=== PATIENT | female | born 1995 | race Caucasian/White ===

== ENCOUNTER 2021-08-01 07:44 | Observation (INO) ==
[2021-08-01] MEDS ORDERED: KETOROLAC TROMETHAMINE 15 MG/ML VIAL IV ONE (08:07)
[2021-08-01] MEDS ORDERED: ONDANSETRON INJ 2 MG/ML 2 ML VIAL IV STA ×2 (08:07→14:04)
[2021-08-01] MEDS ORDERED: SODIUM CHLORIDE 0.9% 1000ML 1,000 ML IV STA (08:07)
--- NOTE | 2021-08-01 08:12 | Emergency Department Note ---
Impression & Plan Abdominal pain, UTI (urinary tract infection), Leukocytosis, Vomiting ED Provider Note NAME: MEREDITH CORCORAN AGE: 26 SEX: F : 1995 ARRIVES VIA: Walk-In INFORMANT: Patient ED PROVIDER(S): Obie Kramer DO CHIEF COMPLAINT: Abdominal pain HPI: Patient is a 26-year-old female who presents to the ER for right lower quadrant abdominal pain associate with nausea. This is has been present for the past 24 hours. She describes it as sharp stabbing in nature. Denies any dysuria, urgency, or frequency. Last menstrual period was about a month ago. No cough or runny nose. Pain is worse with palpation or movement. No other exacerbating or remitting factors. No previous abdominal surgeries. She is sexually active with one partner. Denies any vaginal discharge. She has never had this pain before. She has not taken anything for the pain. With her nausea she does have some dry heaving. ROS: See above HPI for pertinent positives & negatives. A total of 10 systems reviewed and were otherwise negative. PAST MEDICAL HISTORY:See Below PAST SURGICAL HISTORY:See Below FAMILY HISTORY:See Below SOCIAL HISTORY:See Below HOME MEDICATIONS:See Below ALLERGIES:See Below VITALS:See Below PHYSICAL EXAMINATION: GENERAL: Sitting up in bed, alert, well appearing, well nourished, no distress, non-toxic EYE EXAM: normal conjunctiva. PERRL and EOM's grossly intact. OROPHARYNX: no exudate, no erythema, lips, buccal mucosa, and tongue normal and mucous membranes are moist NECK: supple, no nuchal rigidity, no adenopathy, non-tender LUNGS: Clear to auscultation. Normal chest wall mechanics HEART: no murmurs, S1 normal and S2 normal ABDOMEN: abdomen soft, tender to palpation right lower quadrant, normo-active bowel sounds, no masses, no rebound or guarding. UPPER EXTREMITIES: upper extremities are grossly normal. LOWER EXTREMITIES: No pitting edema. NEURO EXAM: Normal sensorium, cranial nerves II-XII grossly intact, normal speech, no gross weakness of arms, no gross weakness of legs. MEDICAL DECISION MAKING: Exact patient is a 26-year-old female who is a diabetic and presents the ER for severe lower abdominal pain with pressure when she has to urinate. IV was established blood work was obtained. Labs show leukocytosis of 15,000. No significant anemia. There is a significant left shift at nearly 12. BMP with mild hypokalemia. Glucose slightly elevated at 222. LFTs were elevated 175 170. T bili was normal. Lipase was normal. UA shows nitrates leuks whites and +4 bacteria and . No gap. Nothing to suggest an acidosis at this time. She does have vomiting. She was given IV antibiotics as well as Phenergan and Zofran. CT abdomen pelvis shows some inflammation of the bladder. Patient was updated at bedside and admitted to the hospitalist with mild transaminitis, UTI with nausea vomiting likely suggestive of Pylo. [facility] Nursing notes reviewed. Limited review of prior medical records performed Vital Signs: reviewed and remarkable for HTN, tachy Differential diagnosis: Differential diagnoses includes but is not limited to gastritis, peptic ulcer disease, GERD, gallbladder disease, pancreatitis, small bowel obstruction, acute coronary syndrome, pericarditis, ischemic bowel, irritable bowel disease, irritable bowel syndrome, appendicitis, diverticulitis, malignancy, hernia, urinary tract infection, torsion, /ectopic (if female), perforation, trauma, infectious. ER treatment provided: See below Diagnostics interpreted by me: ECG: none Cardiac Monitoring: An order was placed for continuous cardiac monitoring. The monitor shows a rate of 92 with sinus rhythm. Laboratory studies: As stated above and show below. Imaging studies: CT abdomen pelvis as discussed above Consultation(s[facility] Procedures: none Critical Care: None Past Med/Surg History Social History Smoking Status: Never smoker Preferred Language: Uzbek Feels Safe at Home: Yes Allergies Allergies Allergy/AdvReac Type Severity Reaction Status Date / Time sulfamethoxazole Allergy Hives Unverified 08/01/21 08:45 [From Bactrim] trimethoprim [From Bactrim] Allergy Hives Unverified 08/01/21 08:45 Home Meds Home Medications Medication Instructions Recorded Confirmed insulin aspart U-100 100 unit/mL See Rx Instructions .ROUTE .COMPLEX 08/01/21 08/01/21 (3 mL) subcutaneous pen insulin detemir U-100 100 unit/mL 28 unit SUBCUT QAM 08/01/21 08/01/21 (3 mL) subcutaneous pen (Levemir FlexTouch U-100 Insulin) Previous Rx's Medication Instructions Recorded cefdinir 300 mg capsule 300 mg PO BID 10 Days #20 cap 08/01/21 ondansetron HCl 4 mg tablet 4 mg PO Q8H 3 Days #9 tab 08/01/21 (Zofran) Results & Data (ED) Vital Signs Vital Signs - 24 hr 08/01/21 07:51 08/01/21 09:26 08/01/21 12:32 Temperature 36.6 C Temperature Source Oral Pulse Rate 105 H Pulse Rate [Radial] 84 98 H Pulse Rhythm [Radial] Regular Respiratory Rate 16 18 20 Respiratory Effort / Characteristics Non-Labored Non-Labored Spontaneous Respiratory Depth Normal Normal Respiratory Pattern Regular Regular Blood Pressure 158/103 H Blood Pressure [Right Arm] 136/87 142/80 H Blood Pressure Mean 121 Blood Pressure Mean [Right Arm] 103 100 Pulse Oximetry 98 99 98 Oxygen Delivery Method Room Air Room Air Room Air Sepsis Recent Fever Within 48 Hours No Sepsis New/Unexplained Change in Mental Status No Sepsis Action Taken by Nursing No Action Required Laboratory Data Result diagrams: 08/01/21 08:07 08/01/21 08:07 Lab Results 08/01/21 08/01/21 08/01/21 Range/Units 07:56 07:56 08:07 WBC 15.45 H (4.8-10.8) K/uL RBC 4.87 (4.2-5.4) M/uL Hgb 13.8 (12.0-16.0) g/dL Hct 40.6 (37-47) % MCV 83.4 (80-100) fL MCH 28.3 (25-34) pg MCHC 34.0 (32-36) g/dL RDW Std Deviation 39.6 (36.4-46.3) fL RDW Coeff of [place] 13.2 (11.5-14.5) % Plt Count 379 (130-400) K/uL MPV 11.1 H (7.4-10.4) fL Immature Gran % (Auto) 0.3 % Neut % (Auto) 76.0 % Lymph % (Auto) 15.3 % [place] % (Auto) 7.8 % Eos % (Auto) 0.3 % Baso % (Auto) 0.3 % Neut # (Auto) 11.76 H (1.4-6.5) K/uL Lymph # (Auto) 2.36 (1.2-3.4) K/uL [place] # (Auto) 1.20 H (0.11-0.59) K/uL Eos # (Auto) 0.05 (0-0.5) K/uL Baso # (Auto) 0.04 (0-0.2) K/uL Immature Gran # (Auto) 0.04 H (0.00-0.02) K/uL Sodium (136-145) mmol/L Potassium (3.5-5.1) mmol/L Chloride (98-107) mmol/L Carbon Dioxide (21-32) mmol/L Anion Gap (3-11) BUN (7-18) mg/dl Creatinine (0.6-1.2) mg/dl Est Cr Clr Drug Dosing ml/min Est GFR ( Amer) ml/min Est GFR (Non-Af Amer) ml/min BUN/Creatinine Ratio (10-20) Glucose (70-99) mg/dl POC Glucose (70-99) mg/dl Calcium (8.5-10.1) mg/dl Total Bilirubin (0.2-1) mg/dl AST (15-37) U/L ALT (12-78) U/L Alkaline Phosphatase (45-117) U/L Total Protein (6.4-8.2) gm/dl Albumin (3.4-5.0) gm/dl Globulin (2.5-4.0) gm/dl Albumin/Globulin Ratio (0.9-2) Lipase (73-393) U/L Urine Color [place] Urine Appearance Turbid A (Clear) Urine pH 6.5 (4.5-7.5) Ur Specific [place] 1.028 (1.000-1.030) Urine Protein 3+ H (Negative) Urine Glucose (UA) 3+ H (Negative) Urine Ketones Trace H (Negative) Urine Blood 3+ H (Negative) Urine Nitrite Positive A (Negative) Urine Bilirubin Negative (Negative) Urine Urobilinogen Negative (Negative) Ur Leukocyte Esterase 2+ H (Negative) Urine WBC (Auto) >30 H (0-5) /hpf Urine RBC (Auto) >30 H (0-4) /hpf U Hyaline Cast (Auto) 1-5 (0-5) /lpf U Epithel Cells (Auto) 10-20 H (0-5) /lpf Urine Bacteria (Auto) 4+ H (Negative) Urine Test Negative (Negative) COVID-19 Eval Order 08/01/21 08/01/21 08/01/21 Range/Units 08:07 13:00 13:04 WBC (4.8-10.8) K/uL RBC (4.2-5.4) M/uL Hgb (12.0-16.0) g/dL Hct (37-47) % MCV (80-100) fL MCH (25-34) pg MCHC (32-36) g/dL RDW Std Deviation (36.4-46.3) fL RDW Coeff of [place] (11.5-14.5) % Plt Count (130-400) K/uL MPV (7.4-10.4) fL Immature Gran % (Auto) % Neut % (Auto) % Lymph % (Auto) % [place] % (Auto) % Eos % (Auto) % Baso % (Auto) % Neut # (Auto) (1.4-6.5) K/uL Lymph # (Auto) (1.2-3.4) K/uL [place] # (Auto) (0.11-0.59) K/uL Eos # (Auto) (0-0.5) K/uL Baso # (Auto) (0-0.2) K/uL Immature Gran # (Auto) (0.00-0.02) K/uL Sodium 132 L (136-145) mmol/L Potassium 3.5 (3.5-5.1) mmol/L Chloride 100 (98-107) mmol/L Carbon Dioxide 24 (21-32) mmol/L Anion Gap 8.0 (3-11) BUN 11 (7-18) mg/dl Creatinine 0.62 (0.6-1.2) mg/dl Est Cr Clr Drug Dosing 104.7 ml/min Est GFR ( Amer) 145.3 ml/min Est GFR (Non-Af Amer) 125.3 ml/min BUN/Creatinine Ratio 17.0 (10-20) Glucose 253 H (70-99) mg/dl POC Glucose 222 H (70-99) mg/dl Calcium 9.6 (8.5-10.1) mg/dl Total Bilirubin 0.3 (0.2-1) mg/dl AST 175 H (15-37) U/L ALT 170 H (12-78) U/L Alkaline Phosphatase 133 H (45-117) U/L Total Protein 8.5 H (6.4-8.2) gm/dl Albumin 3.6 (3.4-5.0) gm/dl Globulin 4.9 H (2.5-4.0) gm/dl Albumin/Globulin Ratio 0.7 L (0.9-2) Lipase 105 (73-393) U/L Urine Color Urine Appearance (Clear) Urine pH (4.5-7.5) Ur Specific [place] (1.000-1.030) Urine Protein (Negative) Urine Glucose (UA) (Negative) Urine Ketones (Negative) Urine Blood (Negative) Urine Nitrite (Negative) Urine Bilirubin (Negative) Urine Urobilinogen (Negative) Ur Leukocyte Esterase (Negative) Urine WBC (Auto) (0-5) /hpf Urine RBC (Auto) (0-4) /hpf U Hyaline Cast (Auto) (0-5) /lpf U Epithel Cells (Auto) (0-5) /lpf Urine Bacteria (Auto) (Negative) Urine Test (Negative) COVID-19 Eval Order Covid19 at [facility] Administered Medications Discontinued Medications Sodium Chloride (Nss 1000ml) 1,000 mls @ 999 mls/hr IV .Q1H1M STA Stop: 08/01/21 09:07 Last Infusion: 08/01/21 09:19 Dose: 0 mls/hr Documented by: [id number] Admin: 08/01/21 08:15 Dose: 999 mls/hr Documented by: [id number] Ceftriaxone Sodium (Rocephin) 1,000 mg in 50 mls @ 100 mls/hr IV NOW STA Stop: 08/01/21 11:40 Last Infusion: 08/01/21 12:33 Dose: 0 mls/hr Documented by: [id number] Admin: 08/01/21 11:47 Dose: 100 mls/hr Documented by: [id number] Promethazine HCl (Phenergan) 12.5 mg in 50.5 mls @ 202 mls/hr IV NOW STA Stop: 08/01/21 12:04 Last Admin: 08/01/21 12:23 Dose: 202 mls/hr Documented by: [id number] Ketorolac Tromethamine (Ketorolac Tromethamine 15 Mg/Ml Vial) 15 mg IV NOW ONE Stop: 08/01/21 08:08 Last Admin: 08/01/21 08:16 Dose: 15 mg Documented by: [id number] Ondansetron HCl (Ondansetron Inj 2 Mg/Ml 2 Ml Vial) 4 mg IV NOW STA Stop: 08/01/21 08:08 Last Admin: 08/01/21 08:15 Dose: 4 mg Documented by: [id number] Imaging Data Radiologist's Impression: Abdomen/Pelvis CT 08/01/21 08:07 CT SCAN OF THE ABDOMEN AND PELVIS WITHOUT IV CONTRAST CLINICAL HISTORY: Right lower quadrant abdominal pain. COMPARISON STUDY: No priors. TECHNIQUE: CT scan of the abdomen and pelvis is performed from the lung bases to the proximal femora. Images are reviewed in the axial, sagittal, and coronal planes. IV contrast was not administered for this examination. Note that the examination is suboptimal without IV contrast. Oral contrast was utilized. A dose lowering technique was utilized adhering to the principles of ALARA. CT DOSE: 539.98 mGycm FINDINGS: Lung bases: The heart is normal in size and without pericardial effusion. The lung bases are clear. Liver: The unenhanced liver is normal in size, contour, and attenuation. There is no intrahepatic biliary ductal dilatation. Gallbladder: Unremarkable. Spleen: Normal in size and attenuation. Pancreas: Unremarkable. Adrenal glands: Unremarkable. Kidneys: The unenhanced kidneys are normal in size and without hydronephrosis. There are no renal calculi identified. There is no evidence of contour deforming renal mass lesion. Abdominal vasculature: The abdominal aorta is normal in course and caliber. Bowel: There is no bowel obstruction. Mild to moderate fecal retention is seen throughout the colon. Enteric contrast reaches the right colon. The appendix is well-visualized and normal. Peritoneum: There is no intraperitoneal free air or abdominal ascites. Lymphadenopathy: None. Pelvic viscera: The bladder wall appears circumferentially thickened. The uterus and adnexa are normal as visualized noting bilateral ovarian follicles. A small volume of free fluid is seen in the cul-de-sac. Skeletal structures: No lytic or blastic lesions are seen. IMPRESSION: 1. The bladder wall appears circumferentially thickened. Correlate with clinical findings and urinalysis for evidence of cystitis. 2. Normal appendix. 3. Trace nonspecific free fluid in the cul-de-sac is likely physiologic. ACT 112: Negative or not required by law. Electronically signed by: Oliver Stubbs M.D. 08/01/2021 10:56 AM Discharge Plan Visit Data Chief Complaint: Abdominal Pain Stated Complaint: SEVERE ABD CRAMPING ED Provider: Obie Kramer Discharge Problem: Abdominal pain, UTI (urinary tract infection), Leukocytosis, Vomiting Discharge Instructions Krames/Other Patient Handouts: Abdominal Pain Activity Restrictions/Additional Instructions: Please follow up with your primary care doctor with in the next 24 hours. Any worsening of your symptoms, please return to the ED immediately. This includes any fevers greater than 100.4, worsening pain, chest pain, shortness breath, persistent nausea, vomiting, unable to eat or drink, or any other concerning signs or symptoms from your standpoint. You were found to have a blood pressure greater than 120 systolic over 90 diastolic. Due to the new Medicare guidelines, we are now recommending that you follow up with your primary care doctor in regards to this elevated blood pressu re. Please take the antibiotics as prescribed. Please take Tylenol and Motrin as needed for pain. Forms Stand Alone Forms: [facility] Prescriptions Prescriptions: New cefdinir 300 mg capsule 300 mg PO BID 10 Days Qty: 20 RF: 0 ondansetron HCl [Zofran] 4 mg tablet 4 mg PO Q8H 3 Days Qty: 9 RF: 0 No Action insulin aspart U-100 100 unit/mL (3 mL) insulin pen See Rx Instructions .ROUTE .COMPLEX RF: 0 Levemir FlexTouch U-100 Insuln 100 unit/mL (3 mL) insulin pen 28 unit SUBCUT QAM RF: 0 Referrals Referrals: PCP,NO [Primary Care Provider] -
[2021-08-01 08:17] LABS: Basophils # (auto) 0.04 K/uL (0-0.2); Basophils % (auto) 0.3 %; Eosinophils # (auto) 0.05 K/uL (0-0.5); Eosinophils % (auto) 0.3 %; Hematocrit (blood only) 40.6 % (37-47); Hemoglobin 13.8 g/dL (12.0-16.0); Immature Granulocytes # (auto) 0.04 K/uL (0.00-0.02); Immature Granulocytes % (auto) 0.3 %; Lymphocytes # (auto) 2.36 K/uL (1.2-3.4); Lymphocytes % (auto) 15.3 %; Mean Corpuscular Hemoglobin 28.3 pg (25-34); Mean Corpuscular Volume 83.4 fL (80-100); Mean Platelet Volume 11.1 fL (7.4-10.4); Monocytes % (auto) 7.8 %; Neutrophils # (auto) 11.76 K/uL (1.4-6.5); Platelet Count 379 K/uL (130-400); RDW Coefficient of Variation 13.2 % (11.5-14.5); RDW Standard Deviation 39.6 fL (36.4-46.3); Red Blood Count 4.87 M/uL (4.2-5.4); White Blood Count 15.45 K/uL (4.8-10.8)
[2021-08-01 08:21] LABS: Appearance Urine Turbid (Clear); Bacteria Urine Automated 4+ (Negative); Bilirubin Urine Negative (Negative); Blood Urine 3+ (Negative); Color Urine Orange; Glucose Urine UA 3+ (Negative); Ketones Urine Trace (Negative); Leukocyte Esterase Urine 2+ (Negative); Nitrite Urine Positive (Negative); Protein Urine 3+ (Negative); RBC Urine Automated >30 /hpf (0-4); Specific Gravity Urine 1.028 (1.000-1.030); Urobilinogen Urine Negative (Negative); WBC Urine Automated >30 /hpf (0-5); pH Urine 6.5 (4.5-7.5)
[2021-08-01 08:28] LABS: Pregnancy Test, Urine Negative (Negative)
[2021-08-01 08:46] LABS: Albumin Level 3.6 gm/dl (3.4-5.0); Calcium 9.6 mg/dl (8.5-10.1); Creatinine Clr Calc Pharmacy 104.7 ml/min; Est GFR (African American) 145.3 ml/min; Est GFR (Non-African American) 125.3 ml/min; Potassium 3.5 mmol/L (3.5-5.1)
[2021-08-01 08:49] LABS: Albumin Globulin Ratio 0.7 (0.9-2); Bilirubin,Total 0.3 mg/dl (0.2-1); Globulin 4.9 gm/dl (2.5-4.0); Total Protein 8.5 gm/dl (6.4-8.2)
--- NOTE | 2021-08-01 10:57 | CT Scan Report ---
CT SCAN OF THE ABDOMEN AND PELVIS WITHOUT IV CONTRAST CLINICAL HISTORY: Right lower quadrant abdominal pain. COMPARISON STUDY: No priors. TECHNIQUE: CT scan of the abdomen and pelvis is performed from the lung bases to the proximal femora. Images are reviewed in the axial, sagittal, and coronal planes. IV contrast was not administered for this examination. Note that the examination is suboptimal without IV contrast. Oral contrast was uti lized. A dose lowering technique was utilized adhering to the principles of ALARA. CT DOSE: 539.98 mGycm FINDINGS: Lung bases: The heart is normal in size and without pericardial effusion. The lung bases are clear. Liver: The unenhanced liver is normal in size, contour, and attenuation. There is no intrahepatic mark iary ductal dilatation. Gallbladder: Unremarkable. Spleen: Normal in size and attenuation. Pancreas: Unremarkable. Adrenal glands: Unremarkable. Kidneys: The unenhanced kidneys are normal in size and without hydronephrosis. There are no renal sana culi identified. There is no evidence of contour deforming renal mass lesion. Abdominal vasculature: The abdominal aorta is normal in course and caliber. Bowel: There is no bowel obstruction. Mild to moderate fecal retention is seen throughout the colon. Enteric contrast reaches the right colon. The appendix is well-visualized and normal. Peritoneum: There is no intraperitoneal free air or abdominal ascites. Lymphadenopathy: None. Pelvic viscera: The bladder wall appears circumferentially thickened. The uterus and adnexa are miriam l as visualized noting bilateral ovarian follicles. A small volume of free fluid is seen in the cul-d e-sac. Skeletal structures: No lytic or blastic lesions are seen. IMPRESSION: 1. The bladder wall appears circumferentially thickened. Correlate with clinical findings and urinaly sis for evidence of cystitis. 2. Normal appendix. 3. Trace nonspecific free fluid in the cul-de-sac is likely physiologic. ACT 112: Negative or not required by law. Electronically signed by: Oliver Stubbs M.D. 08/01/2021 10:56 AM
[2021-08-01] MEDS ORDERED: cefTRIAXone SODIUM 1,000 MG/50 ML BAG IV STA (11:11)
[2021-08-01] MEDS ORDERED: PROMETHAZINE 12.5 MG/50.5 ML BAG IV STA (11:50)
[2021-08-01] MEDS ORDERED: STAT IV Infusion **Titration per Protocol STA (13:06)
[2021-08-01] MEDS ORDERED: INSULIN PROTOCOL GOAL RANGE ONE (13:06)
[2021-08-01] MEDS ORDERED: MODERATE STRESS LEVEL ONE (13:06)
[2021-08-01] MEDS ORDERED: DEXTROSE 50% 50 ML SYRINGE IV PRN (13:15)
[2021-08-01] MEDS ORDERED: GLUCAGON FOR INJ 1 MG VIAL IM PRN (13:15)
[2021-08-01] MEDS ORDERED: GLUCOSE 40% GEL 15 GM TUBE PO PRN (13:15)
[2021-08-01] MEDS ORDERED: GLUCOSE 10 TABS/TUBE PO PRN (13:15)
[2021-08-01] MEDS ORDERED: NovoLIN-R BOLUS FROM BAG IV ONE (13:15)
[2021-08-01] MEDS ORDERED: CARBOHYDRATES FOR HYPOGLYCEMIA PO PRN (13:15)
[2021-08-01] MEDS ORDERED: INSULIN REGULAR 250 UNITS in SODIUM CHLORIDE 0.9% 247.5 ML IV SCH (13:15)
[2021-08-01] MEDS: POTASSIUM CHLORIDE 40 MEQ in SODIUM CHLORIDE 0.9% 1000ML 1,000 ML IV SCH ×2 (14:31→23:05)
[2021-08-01] MEDS: MoRPHine SULFATE 4 MG/ML 1 ML CARP\\VIAL IV PRN ×2 (14:31→22:34)
[2021-08-01 15:45] LABS: Hepatitis B Surf Ag Rflx Conf Neg (Neg)
[2021-08-01 16:14] LABS: Hepatitis C IgG 13Yrs+Old_Rflx Neg (Neg)
[2021-08-01] MEDS ORDERED: INSULIN ASPART 100 UNITS/ML 3 ML PEN SC SCH (16:30)
--- NOTE | 2021-08-01 16:46 | History & Physical Report ---
Date of Service August 01, 2021 Assessment & Plan (1) UTI (urinary tract infection): Plan: -Admit to [facility] -Patient presenting with reports of nausea, vomiting, bladder discomfort -In the ED, UA suggestive of UTI, CT ABD/pelvis showing signs of cystitis -WBC 15 K however does not appear septic, patient afebrile, normal lactic acid -Having intractable nausea and vomiting -S/p IV ceftriaxone in the ED, continue with -Follow urine culture -Continue supportive care with IVF, clear liquid diet -advance as tolerated (2) DM type 1 (diabetes mellitus, type 1): Plan: -Unknown HgbA1c, typically managed with Levemir and insulin aspart sliding scale -Given intractable nausea and vomiting, will place patient on IV insulin drip for now. No signs of DKA currently. (3) Elevated LFTs: Plan: -AST 175, ALT 170, alk phos 133 -Check liver ultrasound -Hepatitis profile -Trend LFTs (4) DVT prophylaxis: Plan: -SCDs, ambulate Admission and Anticipated Discharge Date Admission Date: August 01, 2021 History of Present Illness Chief Complaint: Nausea, vomiting, bladder pain Primary Care Provider: NO PCP 26-year-old female with PMH DM type I and other problems listed below who is from out of the area visiting a friend who presents to the ED for evaluation of nausea, vomiting, bladder discomfort. Patient reports her symptoms began yesterday. She reports bladder pressure however denies dysuria or hematuria. No fevers or chills. She reports a generalized abdominal pain. She has had nausea and vomiting. Denies hematemesis and coffee-ground emesis. No diarrhea. Denies bright red bleeding per rectum and dark tarry stools. No chest pain or shortness of breath. Denies lightheadedness, dizziness, diaphoresis, syncopal events. Patient is an insulin-dependent type 1 diabetic reports her sugars have been running " a little bit high". In the ED, UA is consistent with UTI, CT ABD/pelvis shows signs of cystitis. WBC 15 K, patient afebrile and normal lactic acid. Transaminitis with normal t. bili also noted. Patient received IV ceftriaxone, IV Zofran, IV Phenergan, IVF. Allergies Allergy/AdvReac Type Severity Reaction Status Date / Time sulfamethoxazole Allergy Hives Unverified 08/01/21 08:45 [From Bactrim] trimethoprim [From Bactrim] Allergy Hives Unverified 08/01/21 08:45 Home Medications Medication Instructions Recorded Confirmed Type cefdinir 300 mg capsule 300 mg PO BID 10 Days #20 cap 08/01/21 Rx insulin aspart U-100 100 unit/mL See Rx Instructions .ROUTE .COMPLEX 08/01/21 08/01/21 History (3 mL) subcutaneous pen insulin detemir U-100 100 unit/mL 28 unit SUBCUT QAM 08/01/21 08/01/21 History (3 mL) subcutaneous pen (Levemir FlexTouch U-100 Insulin) ondansetron HCl 4 mg tablet 4 mg PO Q8H 3 Days #9 tab 08/01/21 Rx (Zofran) Past Med/Surg History Medical History DM type 1 (diabetes mellitus, type 1) Surgical History No pertinent past surgical history Family History Denies family history of Diabetes Heart disease Social History Smoking Status: Never smoker Hx Alcohol Use: Yes Alcohol Intake Frequency: 2-4 x/Month Preferred Language: [place] Feels Safe at Home: Yes Review of Systems Review of Systems: ROS per HPI, all other systems reviewed and negative Physical Exam Constitutional: WD/WN, vitals as above + ill appearing; no acute distress Eyes: PERRL, conjunctivae normal, anicteric sclerae ENMT: external ear and nose normal, oropharynx normal Respiratory: normal respiratory effort, lungs clear to auscultation Cardiovascular: Rate/Rhythm: regular rate and regular rhythm Vessels: normal peripheral pulses Extremities: no edema Gastrointestinal (Abdomen): Inspection/Auscultation: normal bowel sounds; abdomen not distended Percussion/Palpation: + abdomen tender (Mild generalized tenderness) and abdomen soft; no hepatosplenomegaly Musculoskeletal: no cyanosis or clubbing, extremities motor strength 5/5 Skin: no rashes, warm and dry Neurologic: PERRL, EOMI, accommodation nl, no face palsy, no dysarthria Psychiatric: Orientation: alert and oriented x 3 Affect: + tearful affect Results & Data Results & Data ([facility]) Vital Signs (Past 12 Hours) Vital Signs Temp Pulse Pulse Resp BP BP Pulse Ox 08/01/21 14:30 82 21 126/90 98 08/01/21 14:00 82 25 H 137/91 96 08/01/21 13:30 93 H 23 140/76 08/01/21 13:15 88 17 08/01/21 12:32 98 H 20 142/80 H 98 08/01/21 09:26 84 18 136/87 99 08/01/21 07:51 36.6 C 105 H 16 158/103 H 98 Laboratory Results Short CBC 08/01/21 Range/Units 08:07 WBC 15.45 H (4.8-10.8) K/uL Hgb 13.8 (12.0-16.0) g/dL Hct 40.6 (37-47) % Plt Count 379 (130-400) K/uL BMP 08/01/21 08:07 Sodium 132 L Potassium 3.5 Chloride 100 Carbon Dioxide 24 BUN 11 Creatinine 0.62 Glucose 253 H Calcium 9.6 Liver Function 08/01/21 Range/Units 08:07 Total Bilirubin 0.3 (0.2-1) mg/dl AST 175 H (15-37) U/L ALT 170 H (12-78) U/L Alkaline Phosphatase 133 H (45-117) U/L Albumin 3.6 (3.4-5.0) gm/dl Urine 08/01/21 Range/Units 07:56 Urine Color [place] Urine Appearance Turbid A (Clear) Urine pH 6.5 (4.5-7.5) Ur Specific [place] 1.028 (1.000-1.030) Urine Protein 3+ H (Negative) Urine Glucose (UA) 3+ H (Negative) Diagnostic Findings Abdomen/Pelvis CT 08/01/21 08:07 CT SCAN OF THE ABDOMEN AND PELVIS WITHOUT IV CONTRAST CLINICAL HISTORY: Right lower quadrant abdominal pain. COMPARISON STUDY: No priors. TECHNIQUE: CT scan of the abdomen and pelvis is performed from the lung bases to the proximal femora. Images are reviewed in the axial, sagittal, and coronal planes. IV contrast was not administered for this examination. Note that the examination is suboptimal without IV contrast. Oral contrast was utilized. A dose lowering technique was utilized adhering to the principles of ALARA. CT DOSE: 539.98 mGycm FINDINGS: Lung bases: The heart is normal in size and without pericardial effusion. The lung bases are clear. Liver: The unenhanced liver is normal in size, contour, and attenuation. There is no intrahepatic biliary ductal dilatation. Gallbladder: Unremarkable. Spleen: Normal in size and attenuation. Pancreas: Unremarkable. Adrenal glands: Unremarkable. Kidneys: The unenhanced kidneys are normal in size and without hydronephrosis. There are no renal calculi identified. There is no evidence of contour deforming renal mass lesion. Abdominal vasculature: The abdominal aorta is normal in course and caliber. Bowel: There is no bowel obstruction. Mild to moderate fecal retention is seen throughout the colon. Enteric contrast reaches the right colon. The appendix is well-visualized and normal. Peritoneum: There is no intraperitoneal free air or abdominal ascites. Lymphadenopathy: None. Pelvic viscera: The bladder wall appears circumferentially thickened. The uterus and adnexa are normal as visualized noting bilateral ovarian follicles. A small volume of free fluid is seen in the cul-de-sac. Skeletal structures: No lytic or blastic lesions are seen. IMPRESSION: 1. The bladder wall appears circumferentially thickened. Correlate with clinical findings and urinalysis for evidence of cystitis. 2. Normal appendix. 3. Trace nonspecific free fluid in the cul-de-sac is likely physiologic. ACT 112: Negative or not required by law. Electronically signed by: Oliver Stubbs M.D. 08/01/2021 10:56 AM Code Status & VTE Plan VTE Prophylaxis Plan VTE Prophylaxis will be ordered: Yes Supervising Physician Co-Signing Physician Notes Attending addendum: The patient was seen and examined in emergency room She has been complaining of abdominal pain, nausea vomiting and bladder discomfort Has history of insulin-dependent diabetes noted to have UTI on admission Complains of severe abdominal pain with nausea during my examination On examination In distress and looks sick Hemodynamically stable Chestclear HeartS1-S2, regular Abdomensoft, tender in the hypogastrium and more or less all over, bowel sound present CNSalert, awake and oriented x3 Admission labs and imaging studies reviewed Has UTI and is complicated by type 1 diabetes Antibiotics and IV insulin have been started Pain control and symptomatic management Agree with assessment and plan as outlined above by Sarah Gayle (1) UTI (urinary tract infection) Hematuria presence: without hematuria Urinary tract infection type: acute cystitis Qualified Code(s): N30.00 - Acute cystitis without hematuria
[2021-08-01] MEDS ORDERED: ONDANSETRON INJ 2 MG/ML 2 ML VIAL IV PRN (20:11)
[2021-08-01] MEDS ORDERED: PHARMACY GLYCEMIC MGMT CONSULT PRN (20:47)
[2021-08-01] MEDS: INSULIN ASPART 100 UNITS/ML 3 ML PEN SC SCH ×2 (21:31→21:32)
[2021-08-01 21:44] LABS: BUN Creatinine Ratio 22.4 (10-20); Blood Urea Nitrogen 11 mg/dl (7-18); Calcium 8.4 mg/dl (8.5-10.1); Carbon Dioxide 21 mmol/L (21-32); Chloride 111 mmol/L (98-107); Creatinine Clr Calc Pharmacy 132.4 ml/min; Est GFR (African American) > 150.0 ml/min; Est GFR (Non-African American) 135.4 ml/min; Glucose 92 mg/dl (70-99); Potassium 4.4 mmol/L (3.5-5.1); Sodium 139 mmol/L (136-145)
--- NOTE | 2021-08-01 21:55 | Pharmacy Report ---
Pharmacy Glycemic Short Note 2 - Date of Service August 01, 2021 - Glycemic Short BSG Results (Last 24 hours): 08/01/21 08/01/21 08/01/21 08:07 13:04 14:46 Glucose 253 H POC Glucose 222 H 174 H 08/01/21 08/01/21 08/01/21 15:44 17:03 18:07 Glucose POC Glucose 164 H 148 H 115 H 08/01/21 08/01/21 08/01/21 19:01 20:01 20:44 Glucose 92 POC Glucose 128 H 103 H OUTPATIENT ANTIDIABETIC REGIMEN: * Levemir 28 units SC qAM, 15 units SC HS (doses per patient) * Novolog 10 units TIDM + SSI (patient not able to provide correction factor) * HbA1c ordered ASSESSMENT: * FG is a 26 year old female with T1DM admitted for UTI w/ nausea and vomiting * Clear liquid diet ordered * Insulin infusion started this afternoon and continued until ~2100 at time of glycemic consult * BSGs initially in 200s, now low 100s on low insulin infusion rate (< 1 unit/hr) * Confirmed that patient did administer 28 units of Levemir this morning, will hold HS Levemir in light of now controlled BSGs and clear liquid diet. PLAN FOR INPATIENT GLYCEMIC CONTROL: * Basal insulin * Levemir 28 units SC this morning (prior to admission) * Reassess in AM * Bolus insulin * NovoLog per scale ACHS or Q6hrs while NPO * Goal Range: Low 110 mg/dL - High 140 mg/dL * Correction Factor: 25 mg/dL/unit * Nutritional / Prandial insulin per carb ratio of 1 unit per 8 grams CHO consumed PLAN FOR DISCHARGE: * tbd
[2021-08-02] MEDS: POTASSIUM CHLORIDE 40 MEQ in SODIUM CHLORIDE 0.9% 1000ML 1,000 ML IV SCH ×2 (09:22→18:45)
[2021-08-02] MEDS: INSULIN DETEMIR FLEXPEN/FLEX TOUCH 100 UNITS/ML 3ML SC SCH (09:23)
[2021-08-02] MEDS: INSULIN ASPART 100 UNITS/ML 3 ML PEN SC SCH ×4 (10:24→21:20)
--- NOTE | 2021-08-02 10:58 | Pharmacy Report ---
Pharmacy Glycemic Short Note 2 - Date of Service August 02, 2021 - Glycemic Short BSG Results (Last 24 hours): 08/01/21 08/01/21 08/01/21 13:04 14:46 15:44 Glucose POC Glucose 222 H 174 H 164 H 08/01/21 08/01/21 08/01/21 17:03 18:07 19:01 Glucose POC Glucose 148 H 115 H 128 H 08/01/21 08/01/21 08/02/21 20:01 20:44 00:13 Glucose 92 POC Glucose 103 H 128 H 08/02/21 07:46 Glucose POC Glucose 259 H OUTPATIENT ANTIDIABETIC REGIMEN: * Levemir 28 units SC qAM, 15 units SC HS (doses per patient) * Novolog 10 units TIDM + SSI (patient not able to provide correction factor) * HbA1c ordered ASSESSMENT: 08/02 * BSG elevated this morning secondary to no basal insulin last evening- held for "lower" BSGs and clear liquid diet. Pt uses levemir as an outpatient - NOT a 24 hr insulin therefore must be given BID. * Will resume outpatient dosing on Levemir 25 units AM + 15 units PM + Novolog per scale with meals. Will give lower dose of levemir this evening if BSG < 160. Will not hold basal insulin in type 1 diabetic patient regardless of PO intake. 08/01 * FG is a 26 year old female with T1DM admitted for UTI w/ nausea and vomiting * Clear liquid diet ordered * Insulin infusion started this afternoon and continued until ~2100 at time of glycemic consult * BSGs initially in 200s, now low 100s on low insulin infusion rate (< 1 unit/hr) * Confirmed that patient did administer 28 units of Levemir this morning, will hold HS Levemir in light of now controlled BSGs and clear liquid diet. PLAN FOR INPATIENT GLYCEMIC CONTROL: * Basal insulin * Levemir 28 units SC AM + 15 units Levemir HS (give 10 units if BSG < 160) * Bolus insulin * NovoLog per scale ACHS or Q6hrs while NPO * Goal Range: Low 110 mg/dL - High 140 mg/dL * Correction Factor: 25 mg/dL/unit * Nutritional / Prandial insulin per carb ratio of 1 unit per 8 grams CHO consumed PLAN FOR DISCHARGE: * tbd- A1c pending
[2021-08-02 11:57] LABS: Hemoglobin 11.2 g/dL (12.0-16.0); Mean Corpuscular Hemoglobin 28.1 pg (25-34); Mean Corpuscular Hgb Conc 32.9 g/dL (32-36); Mean Corpuscular Volume 85.2 fL (80-100); Mean Platelet Volume 11.6 fL (7.4-10.4); Platelet Count 305 K/uL (130-400); RDW Coefficient of Variation 13.4 % (11.5-14.5); RDW Standard Deviation 41.9 fL (36.4-46.3); Red Blood Count 3.99 M/uL (4.2-5.4); White Blood Count 13.41 K/uL (4.8-10.8)
[2021-08-02] MEDS ORDERED: cefTRIAXone SODIUM 1,000 MG in DEXTROSE 5% 50 ML IV SCH (12:00)
--- NOTE | 2021-08-02 12:21 | Ultrasound Report ---
ULTRASOUND RIGHT UPPER QUADRANT ABDOMEN CLINICAL HISTORY: Elevated hepatic transaminases. COMPARISON STUDY: Abdominal CT dated 08/01/2021. TECHNIQUE: Real-time, grayscale, and color flow sonography of the right upper quadrant of the abdomen was performed. Images are reviewed in the transverse and longitudinal planes. FINDINGS: Liver: The liver is normal in size and echotexture. There is no intrahepatic biliary ductal dilatatio n. The main portal vein is patent. Gallbladder: The gallbladder is normal in appearance. No gallstones are identified. There is no gallb ladder wall thickening or pericholecystic fluid. A sonographic Vera's sign is reportedly absent. Th e common bile duct measures up to 0.2 cm in diameter. Pancreas: Visualized portions of the pancreatic head and body are normal in appearance. The splenic v ein is patent. Right kidney: Survey images of the right kidney demonstrate normal size and echotexture. There is no hydronephrosis. Ascites: None. IMPRESSION: 1. Unremarkable sonographic assessment of the liver. 2. No gallstones are identified. ACT 112: Negative or not required by law. Electronically signed by: Oliver Stubbs M.D. 08/02/2021 12:20 PM
[2021-08-02 12:28] LABS: Albumin Globulin Ratio 0.7 (0.9-2); Albumin Level 2.5 gm/dl (3.4-5.0); BUN Creatinine Ratio 12.6 (10-20); Bilirubin,Total 0.6 mg/dl (0.2-1); Calcium 8.3 mg/dl (8.5-10.1); Est GFR (African American) 144.5 ml/min; Est GFR (Non-African American) 124.7 ml/min; Globulin 3.5 gm/dl (2.5-4.0); Potassium 4.1 mmol/L (3.5-5.1)
[2021-08-02 12:46] LABS: Estimated Average Glucose 338 mg/dl; Hemoglobin A1C 13.4 % (4.5-5.6)
[2021-08-02] MEDS ORDERED: Nursing to Pharmacy Communication SCH (14:45)
--- NOTE | 2021-08-02 16:17 | Hospitalist Progress Note ---
Date of Service August 02, 2021 Assessment & Plan (1) UTI (urinary tract infection): Plan: -Patient presenting with reports of nausea, vomiting, bladder discomfort -In the ED, UA suggestive of UTI, CT ABD/pelvis showing signs of cystitis -WBC 15 K however does not appear septic, patient afebrile, normal lactic acid -Having intractable nausea and vomiting -S/p IV ceftriaxone in the ED, continue with -Urine culture is growing gram-negative bacilli, await identification and sensitivity -She has been feeling much better and will be discharged home tomorrow (2) DM type 1 (diabetes mellitus, type 1): Plan: -Unknown HgbA1c, typically managed with Levemir and insulin aspart sliding scale -Given intractable nausea and vomiting, will place patient on IV insulin drip for now. No signs of DKA currently. -Appreciate pharmacy input and recommendation (3) Elevated LFTs: Plan: -AST 175, ALT 170, alk phos 133 -Check liver ultrasound -Hepatitis profile have been pending -LFTs are not any better -We will get immunoglobin G and ROYAL out autoimmune hepatitis -Also check acetaminophen and Tylenol level -We will need outpatient GI evaluation (4) DVT prophylaxis: Plan: -SCDs, ambulate Admission and Anticipated Discharge Date Admission Date: August 01, 2021 Subjective 08/02/2021 The patient was seen and examined in medical unit She has been feeling much better and wants to go home Her abdominal pain is resolved and denies any nausea or vomiting Review of Systems Review of Systems: All systems reviewed and are unremarkable except as noted below Gastrointestinal: No abdominal pain Physical Exam Physical Exam: Lying in bed comfortably Constitutional: + thin; not ill appearing Eyes: PERRL, conjunctivae normal, anicteric sclerae ENMT: external ear and nose normal, oropharynx normal Neck: trachea midline, no thyromegaly Respiratory: no respiratory distress and no cough Auscultation: lungs clear to auscultation bilaterally Cardiovascular: Rate/Rhythm: regular rate and regular rhythm; not tachycardic Heart Sounds: normal S1 and normal S2; no murmur Extremities: no edema Gastrointestinal (Abdomen): Inspection/Auscultation: normal bowel sounds; abdomen not distended Percussion/Palpation: abdomen soft; abdomen nontender Musculoskeletal: No acute arthritis in any joint Neurologic: Alert, awake and oriented x3 Results & Data Results & Data ([facility]) Vital Signs (Past 12 Hours) Vital Signs Temp Pulse Resp BP Pulse Ox 08/02/21 15:50 37.0 C 80 16 128/85 98 08/02/21 07:35 89 16 120/77 99 Laboratory Results Short CBC 08/02/21 08/02/21 Range/Units 10:49 11:30 WBC Cancelled 13.41 H Hgb Cancelled 11.2 L Hct Cancelled 34.0 L Plt Count Cancelled 305 BMP 08/01/21 08/02/21 08/02/21 20:44 10:49 11:34 Sodium 139 D Cancelled 136 Potassium 4.4 D Cancelled 4.1 Chloride 111 H Cancelled 105 Carbon Dioxide 21 Cancelled 25 BUN 11 Cancelled 8 Creatinine 0.49 L Cancelled 0.63 Glucose 92 Cancelled 296 H Calcium 8.4 L Cancelled 8.3 L Liver Function 08/02/21 08/02/21 Range/Units 10:49 11:34 Total Bilirubin Cancelled 0.6 AST Cancelled 206 H ALT Cancelled 263 H Alkaline Phosphatase Cancelled 167 H Albumin Cancelled 2.5 L Medications Administered Current Inpatient Medications Dextrose (Dextrose 50% 50 Ml Syringe) 25 - 50 ml IV UD PRN; Protocol PRN Reason: Hypoglycemia Protocol Stop: 08/31/21 13:14 Glucagon (Glucagon For Inj 1 Mg Vial) 1 mg IM UD PRN; Protocol PRN Reason: Hypoglycemia Protocol Stop: 08/31/21 13:14 Glucose (Glucose 40% Gel 15 Gm Tube) 15 - 30 gm PO UD PRN; Protocol PRN Reason: Hypoglycemia Protocol Stop: 08/31/21 13:14 Glucose (Glucose 10 Tabs/Tube) 4 - 8 tabs PO UD PRN; Protocol PRN Reason: Hypoglycemia Protocol Stop: 08/31/21 13:14 Potassium Chloride 40 meq/ (Sodium Chloride) 1,020 mls @ 125 mls/hr IV .Q8H10M JOAQUINA Stop: 08/31/21 13:14 Last Admin: 08/02/21 09:22 Dose: 125 mls/hr Documented by: Ceftriaxone Sodium 1,000 mg/ (Dextrose) 50 mls @ 100 mls/hr IV Q24H JOAQUINA; Protocol Stop: 08/07/21 11:59 Last Infusion: 08/02/21 12:12 Dose: Infused Documented by: Insulin Aspart (Insulin Aspart 100 Units/Ml 3 Ml Pen) 0 units SC ACHS JOAQUINA Stop: 08/31/21 00:00 Last Admin: 08/02/21 13:46 Dose: 8 units Documented by: Insulin Detemir (Insulin Detemir Flexpen/Flex Touch 100 Units/Ml 3ml) 28 units SC QAM JOAQUINA Stop: 09/01/21 08:59 Last Admin: 08/02/21 09:23 Dose: 28 units Documented by: Insulin Detemir (Insulin Detemir Flexpen/Flex Touch 100 Units/Ml 3ml) 0 units SC HS [facility]; Protocol Stop: 09/01/21 20:59 Miscellaneous (Carbohydrates For Hypoglycemia ) 15 - 30 gm PO PRN PRN PRN Reason: Hypoglycemia Treatment Stop: 08/31/21 13:14 Miscellaneous Information (Pharmacy Glycemic Mgmt Consult) 1 ea N/A UD PRN PRN Reason: Consult Stop: 08/31/21 20:46 Morphine Sulfate (Morphine Sulfate 4 Mg/Ml 1 Ml Carp\Vial) 4 mg IV Q6H PRN PRN Reason: Pain Stop: 08/15/21 14:03 Last Admin: 08/01/21 22:34 Dose: 4 mg Documented by: Ondansetron HCl (Ondansetron Inj 2 Mg/Ml 2 Ml Vial) 4 mg IV Q6H PRN PRN Reason: Nausea Stop: 08/31/21 20:10 Last Admin: 08/01/21 22:16 Dose: 4 mg Documented by: (1) UTI (urinary tract infection) Hematuria presence: without hematuria Urinary tract infection type: acute cystitis Qualified Code(s): N30.00 - Acute cystitis without hematuria
[2021-08-02 17:24] LABS: Acetaminophen < 2 ug/ml (10-30); Salicylate 1.8 mg/dl (2.8-20)
[2021-08-02] MEDS ORDERED: INSULIN DETEMIR FLEXPEN/FLEX TOUCH 100 UNITS/ML 3ML SC SCH (21:00)
[2021-08-03] MEDS: INSULIN ASPART 100 UNITS/ML 3 ML PEN SC SCH ×3 (01:55→08:49)
[2021-08-03] MEDS: MoRPHine SULFATE 4 MG/ML 1 ML CARP\\VIAL IV PRN (01:56)
[2021-08-03] MEDS: POTASSIUM CHLORIDE 40 MEQ in SODIUM CHLORIDE 0.9% 1000ML 1,000 ML IV SCH ×2 (02:29→10:44)
[2021-08-03] MEDS: INSULIN DETEMIR FLEXPEN/FLEX TOUCH 100 UNITS/ML 3ML SC SCH (08:46)
[2021-08-03 09:03] LABS: Basophils # (auto) 0.03 K/uL (0-0.2); Basophils % (auto) 0.2 %; Eosinophils # (auto) 0.07 K/uL (0-0.5); Eosinophils % (auto) 0.6 %; Hemoglobin 10.9 g/dL (12.0-16.0); Immature Granulocytes # (auto) 0.02 K/uL (0.00-0.02); Immature Granulocytes % (auto) 0.2 %; Lymphocytes # (auto) 2.76 K/uL (1.2-3.4); Lymphocytes % (auto) 21.7 %; Mean Corpuscular Hemoglobin 27.4 pg (25-34); Mean Corpuscular Hgb Conc 32.1 g/dL (32-36); Mean Corpuscular Volume 85.4 fL (80-100); Mean Platelet Volume 11.2 fL (7.4-10.4); Monocytes # (auto) 0.93 K/uL (0.11-0.59); Monocytes % (auto) 7.3 %; Platelet Count 332 K/uL (130-400); RDW Coefficient of Variation 13.6 % (11.5-14.5); RDW Standard Deviation 42.7 fL (36.4-46.3); Red Blood Count 3.98 M/uL (4.2-5.4); White Blood Count 12.71 K/uL (4.8-10.8)
[2021-08-03 09:30] LABS: Alanine Aminotransferase 187 U/L (12-78); Albumin Level 2.4 gm/dl (3.4-5.0); Aspartate Aminotransferase 79 U/L (15-37); BUN Creatinine Ratio 17.1 (10-20); Blood Urea Nitrogen 8 mg/dl (7-18); Carbon Dioxide 21 mmol/L (21-32); Chloride 107 mmol/L (98-107); Creatinine Clr Calc Pharmacy 141.1 ml/min; Est GFR (African American) > 150.0 ml/min; Est GFR (Non-African American) 138.3 ml/min; Glucose 239 mg/dl (70-99); Potassium 3.9 mmol/L (3.5-5.1); Sodium 137 mmol/L (136-145)
[2021-08-03 09:33] LABS: Albumin Globulin Ratio 0.6 (0.9-2); Alkaline Phosphatase 151 U/L (45-117); Bilirubin,Total 0.6 mg/dl (0.2-1); Globulin 4.3 gm/dl (2.5-4.0); Total Protein 6.7 gm/dl (6.4-8.2)
--- NOTE | 2021-08-03 10:35 | Pharmacy Report ---
Pharmacy Glycemic Short Note 2 - Date of Service August 03, 2021 - Glycemic Short BSG Results (Last 24 hours): 08/02/21 08/02/21 08/02/21 10:49 11:34 12:36 Glucose Cancelled 296 H POC Glucose 228 H 08/02/21 08/02/21 08/03/21 16:54 20:45 01:48 Glucose POC Glucose 141 H 82 184 H 08/03/21 08/03/21 08:39 08:39 Glucose 239 H POC Glucose 243 H OUTPATIENT ANTIDIABETIC REGIMEN: * Levemir 28 units SC qAM, 15 units SC HS (doses per patient) * Novolog 10 units TIDM + SSI (patient not able to provide correction factor) * HbA1c ordered ASSESSMENT: 08/03 * Pt has received 64 units of insulin over the past 24hrs * 38 units of basal with Levemir * 26 units of bolus with NovoLog * BSGs elevated in the morning secondary to missed basal dose the night before. Added HS basal dose back last evening at reduced dosing since outpatient regimen is weighted towards basal insulin- was worried basal may be too much in house. Pt received 10 units of levemir last evening and then 4 units of correctional insulin overnight. AM fasting BSG high again this morning - will just resume outpatient levemir dosing of 15 units HS * Loosen CF to prevent low bsg after patient receives both CF+CR insulin. 08/02 * BSG elevated this morning secondary to no basal insulin last evening- held for "lower" BSGs and clear liquid diet. Pt uses levemir as an outpatient - NOT a 24 hr insulin therefore must be given BID. * Will resume outpatient dosing on Levemir 25 units AM + 15 units PM + Novolog per scale with meals. Will give lower dose of levemir this evening if BSG < 160. Will not hold basal insulin in type 1 diabetic patient regardless of PO intake. 08/01 * FG is a 26 year old female with T1DM admitted for UTI w/ nausea and vomiting * Clear liquid diet ordered * Insulin infusion started this afternoon and continued until ~2100 at time of glycemic consult * BSGs initially in 200s, now low 100s on low insulin infusion rate (< 1 unit/hr) * Confirmed that patient did administer 28 units of Levemir this morning, will hold HS Levemir in light of now controlled BSGs and clear liquid diet. PLAN FOR INPATIENT GLYCEMIC CONTROL: * Basal insulin * Levemir 28 units SC AM + 15 units Levemir HS * Bolus insulin * NovoLog per scale ACHS or Q6hrs while NPO * Goal Range: Low 110 mg/dL - High 140 mg/dL * Correction Factor: 30 mg/dL/unit * Nutritional / Prandial insulin per carb ratio of 1 unit per 8 grams CHO consumed PLAN FOR DISCHARGE: * A1c = 13.4% on 08/02/21 * Suspect an element of non-adherence/missed insulin doses as an outpatient as current Rx outpatient dosing is similar to inpatient needs. * Recommend working on not missing insulin doses before adjusting insulin dosing.
--- NOTE | 2021-08-03 10:39 | Hospitalist Progress Note ---
Date of Service August 03, 2021 Assessment & Plan (1) UTI (urinary tract infection): Plan: -Patient presenting with reports of nausea, vomiting, bladder discomfort -In the ED, UA suggestive of UTI, CT ABD/pelvis showing signs of cystitis -WBC 15 K however does not appear septic, patient afebrile, normal lactic acid -Having intractable nausea and vomiting -S/p IV ceftriaxone in the ED, continue with -Urine culture is growing gram-negative bacilli, await identification and sensitivity -She has been feeling much better and will be discharged home tomorrow -Urine culture has developed E. coli and is almost pansensitive and started with oral Keflex to finish 5 more days of antibiotic -To be discharged home this morning (2) DM type 1 (diabetes mellitus, type 1): Plan: -Unknown HgbA1c, typically managed with Levemir and insulin aspart sliding scale -Given intractable nausea and vomiting, will place patient on IV insulin drip for now. No signs of DKA currently. -Appreciate pharmacy input and recommendation -Advised to have an appointment with her process tank tender within 1 to 2 weeks for better control of diabetes (3) Elevated LFTs: Plan: -AST 175, ALT 170, alk phos 133 -Check liver ultrasound -Hepatitis profile have been pending -LFTs are not any better -We will get immunoglobin G and ROYAL out autoimmune hepatitis -Also check acetaminophen and Tylenol level -Hepatitis B surface antigen is negative and hepatitis C antibody is negative -Hepatitis A and B core antibody is pending -Ultrasound did not show any gallstone -LFTs are improving and the patient was advised to have follow-up appointment with primary care physician for that (4) DVT prophylaxis: Plan: -SCDs, ambulate Admission and Anticipated Discharge Date Admission Date: August 01, 2021 Subjective 08/02/2021 The patient was seen and examined in medical unit She has been feeling much better and wants to go home Her abdominal pain is resolved and denies any nausea or vomiting 08/03/2021 The patient was seen and examined in medical floor She has been feeling a lot better and denies any abdominal discomfort, nausea and or vomiting She does not have any urinary symptoms No fever and/or chills Review of Systems Review of Systems: All systems reviewed and are unremarkable except as noted below Gastrointestinal: No abdominal pain Physical Exam Physical Exam: Lying in bed comfortably Constitutional: + thin; not ill appearing Eyes: PERRL, conjunctivae normal, anicteric sclerae ENMT: external ear and nose normal, oropharynx normal Neck: trachea midline, no thyromegaly Respiratory: no respiratory distress and no cough Auscultation: lungs clear to auscultation bilaterally Cardiovascular: Rate/Rhythm: regular rate and regular rhythm; not tachycardic Heart Sounds: normal S1 and normal S2; no murmur Extremities: no edema Gastrointestinal (Abdomen): Inspection/Auscultation: normal bowel sounds; abdomen not distended Percussion/Palpation: abdomen soft; abdomen nontender Musculoskeletal: No acute arthritis in any joint Neurologic: Alert, awake and oriented x3. No focal sensory and motor deficit appreciated Psychiatric: A+Ox3, euthymic affect Lymphatic: no cervical or axillary lymphadenopathy Results & Data Results & Data ([facility]) Vital Signs (Past 12 Hours) Vital Signs Temp Pulse Pulse Resp BP Pulse Ox 08/03/21 10:31 37.1 C 76 98 H 16 120/75 98 08/03/21 07:21 37.1 C 76 16 120/75 98 08/02/21 23:12 37.3 C 78 18 116/75 98 Laboratory Results Short CBC 08/02/21 08/02/21 08/03/21 Range/Units 10:49 11:30 08:39 WBC Cancelled 13.41 H 12.71 H Hgb Cancelled 11.2 L 10.9 L Hct Cancelled 34.0 L 34.0 L Plt Count Cancelled 305 332 BMP 08/02/21 08/02/21 08/03/21 10:49 11:34 08:39 Sodium Cancelled 136 137 Potassium Cancelled 4.1 3.9 Chloride Cancelled 105 107 Carbon Dioxide Cancelled 25 21 BUN Cancelled 8 8 Creatinine Cancelled 0.63 0.46 L Glucose Cancelled 296 H 239 H Calcium Cancelled 8.3 L 8.0 L Liver Function 08/02/21 08/02/21 08/03/21 Range/Units 10:49 11:34 08:39 Total Bilirubin Cancelled 0.6 0.6 AST Cancelled 206 H 79 H ALT Cancelled 263 H 187 H Alkaline Phosphatase Cancelled 167 H 151 H Albumin Cancelled 2.5 L 2.4 L Medications Administered Current Inpatient Medications Cephalexin HCl (Cephalexin 500 Mg Cap) 500 mg PO TID [facility]; Protocol Stop: 08/08/21 13:59 Dextrose (Dextrose 50% 50 Ml Syringe) 25 - 50 ml IV UD PRN; Protocol PRN Reason: Hypoglycemia Protocol Stop: 08/31/21 13:14 Glucagon (Glucagon For Inj 1 Mg Vial) 1 mg IM UD PRN; Protocol PRN Reason: Hypoglycemia Protocol Stop: 08/31/21 13:14 Glucose (Glucose 40% Gel 15 Gm Tube) 15 - 30 gm PO UD PRN; Protocol PRN Reason: Hypoglycemia Protocol Stop: 08/31/21 13:14 Glucose (Glucose 10 Tabs/Tube) 4 - 8 tabs PO UD PRN; Protocol PRN Reason: Hypoglycemia Protocol Stop: 08/31/21 13:14 Potassium Chloride 40 meq/ (Sodium Chloride) 1,020 mls @ 125 mls/hr IV .[id number] JOAQUINA Stop: 08/31/21 13:14 Last Infusion: 08/03/21 10:44 Dose: Infused Documented by: Insulin Aspart (Insulin Aspart 100 Units/Ml 3 Ml Pen) 0 units SC ACHS [facility] Stop: 08/31/21 00:00 Last Admin: 08/03/21 08:49 Dose: 12 units Documented by: Insulin Detemir (Insulin Detemir Flexpen/Flex Touch 100 Units/Ml 3ml) 28 units SC QAM [facility] Stop: 09/01/21 08:59 Last Admin: 08/03/21 08:46 Dose: 28 units Documented by: Insulin Detemir (Insulin Detemir Flexpen/Flex Touch 100 Units/Ml 3ml) 15 units SC HS [facility] Stop: 09/02/21 20:59 Miscellaneous (Carbohydrates For Hypoglycemia ) 15 - 30 gm PO PRN PRN PRN Reason: Hypoglycemia Treatment Stop: 08/31/21 13:14 Miscellaneous Information (Pharmacy Glycemic Mgmt Consult) 1 ea N/A UD PRN PRN Reason: Consult Stop: 08/31/21 20:46 Morphine Sulfate (Morphine Sulfate 4 Mg/Ml 1 Ml Carp\Vial) 4 mg IV Q6H PRN PRN Reason: Pain Stop: 08/15/21 14:03 Last Admin: 08/03/21 01:56 Dose: 4 mg Documented by: Ondansetron HCl (Ondansetron Inj 2 Mg/Ml 2 Ml Vial) 4 mg IV Q6H PRN PRN Reason: Nausea Stop: 08/31/21 20:10 Last Admin: 08/01/21 22:16 Dose: 4 mg Documented by: (1) UTI (urinary tract infection) Hematuria presence: without hematuria Urinary tract infection type: acute cystitis Qualified Code(s): N30.00 - Acute cystitis without hematuria
[2021-08-03] MEDS ORDERED: cephALEXin 500 MG CAP PO SCH (14:00)
[2021-08-03] MEDS ORDERED: INSULIN DETEMIR FLEXPEN/FLEX TOUCH 100 UNITS/ML 3ML SC SCH (21:00)
--- NOTE | 2021-08-04 07:57 | Discharge Summary ---
Date of Service August 04, 2021 Admission HPI Per Admitting Provider 26-year-old female with PMH DM type I and other problems listed below who is from out of the area visiting a friend who presents to the ED for evaluation of nausea, vomiting, bladder discomfort. Patient reports her symptoms began yesterday. She reports bladder pressure however denies dysuria or hematuria. No fevers or chills. She reports a generalized abdominal pain. She has had nausea and vomiting. Denies hematemesis and coffee-ground emesis. No diarrhea. Denies bright red bleeding per rectum and dark tarry stools. No chest pain or shortness of breath. Denies lightheadedness, dizziness, diaphoresis, syncopal events. Patient is an insulin-dependent type 1 diabetic reports her sugars have been running " a little bit high". In the ED, UA is consistent with UTI, CT ABD/pelvis shows signs of cystitis. WBC 15 K, patient afebrile and normal lactic acid. Transaminitis with normal t. bili also noted. Patient received IV ceftriaxone, IV Zofran, IV Phenergan, IVF. Admission Exam Per Admitting Provider Constitutional: WD/WN, vitals as above + ill appearing; no acute distress Eyes: PERRL, conjunctivae normal, anicteric sclerae ENMT: external ear and nose normal, oropharynx normal Respiratory: normal respiratory effort, lungs clear to auscultation Cardiovascular: Rate/Rhythm: regular rate and regular rhythm Vessels: normal peripheral pulses Extremities: no edema Gastrointestinal (Abdomen): Inspection/Auscultation: normal bowel sounds; abdomen not distended Percussion/Palpation: + abdomen tender (Mild generalized tenderness) and abdomen soft; no hepatosplenomegaly Musculoskeletal: no cyanosis or clubbing, extremities motor strength 5/5 Skin: no rashes, warm and dry Neurologic: PERRL, EOMI, accommodation nl, no face palsy, no dysarthria Psychiatric: Orientation: alert and oriented x 3 Affect: + tearful affect Principal Diagnosis UTI, type 1 diabetes-uncontrolled, elevated LFTs-improving Discharge Exam Lying in bed comfortably Constitutional + thin; not ill appearing Eyes PERRL, conjunctivae normal, anicteric sclerae ENMT external ear and nose normal, oropharynx normal Neck trachea midline, no thyromegaly Respiratory no respiratory distress and no cough Auscultation: lungs clear to auscultation bilaterally Cardiovascular Rate/Rhythm: regular rate and regular rhythm; not tachycardic Heart Sounds: normal S1 and normal S2; no murmur Extremities: no edema Gastrointestinal (Abdomen) Inspection/Auscultation: normal bowel sounds; abdomen not distended Percussion/Palpation: abdomen soft; abdomen nontender Psychiatric A+Ox3, euthymic affect Lymphatic no cervical or axillary lymphadenopathy Discharge Data Allergies Allergy/AdvReac Type Severity Reaction Status Date / Time sulfamethoxazole Allergy Hives Unverified 08/01/21 08:45 [From Bactrim] trimethoprim [From Bactrim] Allergy Hives Unverified 08/01/21 08:45 Consultations 08/01/21 12:18 ED Decision to Admit Stat Ordered Studies 08/01/21 08:07 CT abd pelvis oral con only Stat 08/01/21 20:11 US liver Routine Hospital Course (1) UTI (urinary tract infection): -Patient presenting with reports of nausea, vomiting, bladder discomfort -In the ED, UA suggestive of UTI, CT ABD/pelvis showing signs of cystitis -WBC 15 K however does not appear septic, patient afebrile, normal lactic acid -Having intractable nausea and vomiting -S/p IV ceftriaxone in the ED, continue with -Urine culture is growing gram-negative bacilli, await identification and sen sitivity -She has been feeling much better and will be discharged home tomorrow -Urine culture has developed E. coli and is almost pansensitive and started with oral Keflex to finish 5 more days of antibiotic -To be discharged home this morning (2) DM type 1 (diabetes mellitus, type 1): -Unknown HgbA1c, typically managed with Levemir and insulin aspart sliding scale -Given intractable nausea and vomiting, will place patient on IV insulin drip for now. No signs of DKA currently. -Appreciate pharmacy input and recommendation -Advised to have an appointment with her auto inspector within 1 to 2 weeks for better control of diabetes (3) Elevated LFTs: -AST 175, ALT 170, alk phos 133 -Check liver ultrasound -Hepatitis profile have been pending -LFTs are not any better -We will get immunoglobin G and ROYAL out autoimmune hepatitis -Also check acetaminophen and Tylenol level -Hepatitis B surface antigen is negative and hepatitis C antibody is negative -Hepatitis A and B core antibody is pending -Ultrasound did not show any gallstone -LFTs are improving and the patient was advised to have follow-up appointment with primary care physician for that (4) DVT prophylaxis: -SCDs, ambulate Total Time Total Time Spent Total Time Spent (In Minutes): 35 minutes Discharge Plan Discharge Items Patient Disposition: Home - Self-Care Reason For Visit: UTI Discharge Diagnosis: UTI, type 1 diabetes-uncontrolled, elevated LFTs-improving Condition on Discharge: Good Activity: Resume your previous activity Non-emergency contact: Primary Care Provider Call non-emergency contact if: you have any medication questions and your symptoms worsen Follow-up/Referrals: PCP,NO [Primary Care Provider] - (Please make an appointment with your primary care physician within 1 week and also have follow-up with your auto inspector for management of your diabetes.) Diet: Carb Count or DM1 Addtl Attending Provider Instructions: Please finish the course of antibiotic Try to drink more fluid Please keep appointments with your healthcare providers Recommendations from glycemic control pharmacist: * A1c = 13.4% on 08/02/21 * Suspect an element of non-adherence/missed insulin doses as an outpatient as current Rx outpatient dosing is similar to inpatient needs. * Recommend working on not missing insulin doses before adjusting insulin dosing. Pending Studies at Discharge: Yes Studies:: Hepatitis panel and ROYAL Stand-Alone Forms: [employer], Smoking Cessation Medications and DC Order Prescriptions: New cephalexin 500 mg Capsule 500 mg PO TID Qty: 14 RF: 0 Continued insulin aspart U-100 100 unit/mL (3 mL) insulin pen See Rx Instructions .ROUTE .COMPLEX RF: 0 Levemir FlexTouch U-100 Insuln 100 unit/mL (3 mL) insulin pen 28 unit SUBCUT QAM RF: 0 Discharge Orders: Discharge Order (Routine); Ordered 08/03/21 Ordered By: Jacobo Gayle Admission Data Admit Date/Time: 08/01/21 12:39 Attending Provider: Jacobo Gayle Admit Provider: Jacobo Gayle Primary Care Provider: PCP,NO Other Providers: Jacobo Gayle Other Interventions: Discharge Summary Assessment (RN) Last Done: 08/03/21 10:31
[2021-08-05 12:16] LABS: Anti Nuclear Antibody Screen NEGATIVE (NEGATIVE)
[2021-08-05 12:33] LABS: Hepatitis A Antibody IgM BORDERLINE (NON-REACTIVE); Hepatitis B Core Antibody IgM NON-REACTIVE (NON-REACTIVE)
== END 2021-08-03 11:14 | disposition home or self-care (01) ==
LOC: ED 07:44 → INTOOBSV 12:39 → EDINP 12:39 → 3N 20:06